=== PATIENT | male | born 1990 | race Caucasian/White ===

== ENCOUNTER 2022-06-20 01:05 | Emergency (ER) | payer OTHER, SELFPAY ==
[2022-06-20 01:06] VITALS: BP 142/98; PULSE 79; RESP 16; TEMP 36.6; O2SAT 98; BMI 39.0
[2022-06-20] MEDS: Fluorescein 1 MG STRIP 1 STRIP LEFT EYE (02:30)
--- NOTE | 2022-06-20 02:41 | EDS_ITS ---
HPI History of Present Illness Chief Complaint: Eye Problem Narrative Narrative: Patient is a 32-year-old male who reports no significant past medical problems. He states he was grinding metal on Friday and fell like he had a piece of metal get into his left eye. He denies any change in vision or light sensitivity but states as time went on he developed increased redness tearing and pain to the left eye. He states he was able to see a piece of metal stuck in the left eye when he looked in the mirror and he feels like symptoms are worsening and secondary to this he presents for evaluation. [facility] Medical History no medical history no medical history Home Medications ciprofloxacin HCl 0.3 % eye drops 2 drp LEFT EYE 4X/DAY 5 days #10 mL 06/20/22 [Rx Last Taken Unknown] Allergy/AdvReac Type Severity Reaction Status Date / Time No Known Allergies Allergy Verified 05/30/15 19:30 Social History Smoking Status: Never smoker ROS ROS ED Constitutional Constitutional ED: Denies chills or fever(s) Eyes Eyes: Reports other Details: Positive left eye pain and increased tearing ; Denies blurry vision or change in vision ENT ENT ED: Denies sore throat Cardiovascular Cardiovascular: Denies chest pain Respiratory/Chest Respiratory/Chest: Denies cough or dyspnea Gastrointestinal Gastrointestinal: Denies abdominal pain, diarrhea, nausea or vomiting Genitourinary Genitourinary ED: Denies dysuria Musculoskeletal Musculoskeletal: Denies myalgias Integumentary Denies rash Neurologic Neurologic: Denies headache(s) Hematologic/Lymphatic Hematologic/Lymphatic: Denies easy bleeding or easy bruising EXAM Physical Exam Const Vital Signs: 06/20/22 01:06 Temperature 97.8 F Temperature Source Temporal Pulse Rate 79 Respiratory Rate 16 Blood Pressure 142/98 H Blood Pressure Mean 112 Pulse Ox 98 Oxygen Delivery Method Room Air Positive well nourished and well developed General Appearance ED: well developed HEENT Reports moist mucous membranes Eyes PERRL and EOMs intact bilaterally Eyes Narrative: There is scleral injection present to the left eye. There is foreign body present over top the iris around the 8 o'clock position on the left eye as well. No signs of globe rupture. No hyphema. Neck supple Resp normal respiratory effort and clear to auscultation bilaterally Cardio regular rate and regular rhythm Extremity normal to inspection Neuro oriented x3 and CN's II-XII intact bilaterally Sensorium / Orientation: alert Psych mental status grossly normal Skin no rashes or lesions noted MDM MDM MDM Narrative Medical decision making narrative: Patient presented to the ER with report of foreign body in the left eye and exam does confirm this. The patient received complete relief of pain with tetracaine and then a bur was used to remove the foreign body and rust ring. The patient did not have hyphema or signs of globe rupture and therefore as the foreign bodies been removed he can be placed on antibiotics secondary to the corneal abrasion but is otherwise safe for discharge Discharge Plan Triage Chief Complaint: Eye Problem ED Provider: Brandon Larios Dx/Rx/DC Orders Clinical Impression: Abrasion, corneal, Acute foreign body of left cornea Instructions: ED Corneal Abrasion Prescriptions: New ciprofloxacin HCl 0.3 % drops 2 drp LEFT EYE 4X/DAY 5 Days Qty: 10 0RF Primary Care Provider: Elton Dennis Referrals: Elton Dennis MD [Primary Care Provider] - John Gan MD [Med Staff - Active Staff] - 3-5 Days if not improving Activity Restrictions/Additional Instructions: Please return to the ER or follow-up with ophthalmology if you have any further concerns or issues despite antibiotic drops and removal of the foreign body Disposition Disposition: Home, Self Care
[2022-06-20] MEDS: Tetracaine 0.5% Ophthalmic Bottle 1 DRP LEFT EYE (02:57)
[2022-06-20 03:03] VITALS: BP 134/80; PULSE 87; RESP 16; O2SAT 99
== END 2022-06-20 03:03 | disposition home or self-care (01) ==
PROVIDERS: Emergency Provider Emergency Medicine; PCP Family Medicine; Visit Provider Emergency Medicine
DX: T15.02XA Foreign body in cornea, left eye, initial encounter (principal); Z79.899 Other long term (current) drug therapy
CPT/HCPCS: 99282